=== PATIENT | female | born 1985 | race Two or more races ===

== ENCOUNTER 2024-09-29 10:22 | Emergency (ER) | payer MEDICAID, OTHER ==
[~2024-09-29] VITALS: Ht 157.5 cm; Wt 89.1 kg
[2024-09-29 11:36] LABS: Hematocrit 39.8 % (36.0-46.0); Hemoglobin 13.3 g/dL (12.2-16.2); Mean Corpuscular Hemoglobin 28.2 pg (28.0-32.0); Mean Corpuscular Volume 84.6 fL (80.0-100.0); Nucleated Red Blood Cells % 0.1 %
--- NOTE | 2024-09-29 11:39 | ED.PDOC ---
History of Present Illness HPI Comments Rosanne: HPI: Poor Historian. Patient felt hot HPI: 39y F who presents to the ED for chief complaint of fever - pt states she had L hand surgery at [facility] September 18, 2024 for trigger finger for al 5 fingers on L hand - pt states she was placed on Keflex and states she has been taking it as prescribed and states course of antibiotics ends tomorrow - pt states since yesterday, she has been having subjective fever, chills and states she "feels hot" - pt states she has been placing ice packs on and off but states it has not been helping - pt states her temp at home has been ranging around 102 F at home - pt states she has been taking Tylenol with last 2 doses at 1900 last night and 0900 this AM - pt now in the ED, with temp of 98.3 F, heart rate 100, BP 151/94 - pt otherwise denies any other symptoms at this time Past Medical History: DM Past Surgical History: L hand surgery, carpel tunnel surgery, 4x c-sections Social History: Denies ETOH, smoking, and drug use. Medications: metformin Allergies: NSAIDS REVIEW OF SYSTEMS: CONSTITUTIONAL: Denies acute: , diaphoresis, chills, generalized weakness. HEAD: Denies acute: , photophobia Eyes: Denies acute: Double vision, vision loss, eye pain, eye discharge. EARS: Denies acute: tinnitus, hearing loss, ear discharge, ear pain, THROAT: Denies acute: sore throat, swelling, difficulty swallowing , pain with swallowing, change in voice. NECK: Denies acute: neck pain, neck swelling, stiff neck. HEART: Denies acute : chest pain, palpitations, LUNGS: Denies acute: SOB, wheezing, cough, hemoptysis ABDOMEN: Denies acute: abdominal pain, Nausea, Vomiting, diarrhea, melena , hematemesis, hematochezia SKIN: Denies acute: rash, redness, lesions, itchiness. EXTREMITIES: Denies acute: calf pain, numbness, tingling, weakness, denies pain in extremity. Denies acute: Low back pain. Neuro: Denies acute: focal neurological deficit, motor or sensory focal neurological deficit, tremors, seizure like activity, confusion, dizziness, change in mental status, loss of bowel or bladder function, cauda equina like symptoms. : Denies acute: dysuria, hematuria, flank pain, increase in urinary frequency. PSYCH: Denies acute: hallucination, suicidal ideation, homicidal ideation. FEMALE: Denies acute: abnormal vaginal bleeding, foul odor, unusual discharge. PHYSICAL EXAM: General: ----no----acute distress, awake and alert. Head: normocephalic, atraumatic. Neck: supple, trachea is midline, no swelling. Throat: Normal phonation. Eyes:, no erythema, no purulent discharge, no proptosis, no icterus. Heart: regular rate, regular rhythm, no significant murmur appreciated. Lungs: no apparent respiratory distress, Able to speak in full sentences. No wheezing, no rhonchi, no crackles. No stridors Clear to auscultation bilaterally. Abdomen: non tender to palpation, non distended, soft, no guarding, no rebound, + bowel sounds. Neuro: Awake, Alert, oriented to name, self, situation, follows commands GCS=15. Speech is normal. Skin: no petechia, no purpura, no cyanosis, non-pale, not jaundice. Lower extremities: --no - Pitting edema no deformity, no focal swelling, no calf TTP. Makes eye contact. moves all four extremities. Face: no apparent facial droop. Evaluation of the left hand: Patient had surgery on September 18. Good capillary refill. No swelling, no erythema, no tenderness,. Patient is neurovascularly intact. Able to wiggle all her fingers without any pain. Denies any complaints in her left hand where she had her surgery. Ambulating in the ED independently. No nuchal rigidity, Kernig's sign, Brudzinski's sign, no meningeal signs. ED COURSE: DISCLAIMER: This medical document was created using an electronic medical record system with voice recognition software and computerized dictation system. Although this document has been carefully reviewed, there might still be some phonetic and typographical errors. Occasional wrong-word or "sound-alike" substitutions may have occurred due to the inherent limitations of voice recognition software. These areas are purely typographical due to imperfections of the software programs and do not reflect any compromise in the patient's medical care. Please read the chart carefully and recognize, using context, where these substitutions have occurred. Chief Complaint: Headache Time Seen by MD: 10:26 Reviewed Notes: Medications, Allergies Information Source: Patient Mode of Arrival: Ambulatory Was a procedure done? Was a procedure done?: No Fever Differential Dx Differential Diagnosis: Influenza, Meningitis, Pneumonia, Pneumonitis, Pulmonary Embolus, Pyelonephritis, Sepsis, UTI, Viral Syndrome, Pharyngitis X-Ray, Labs, Meds, VS Vital Signs Date Time Temp Pulse Resp B/P (MAP) Pulse Ox O2 Delivery O2 Flow Rate FiO2 09/29/24 17:48 99.4 98 18 135/86 (102) 100 99.4 09/29/24 15:46 97 20 98 Room Air* 0 21 09/29/24 15:10 99.4 97 20 150/90 (110) 98 99.4 09/29/24 15:10 97 20 98 Room Air 09/29/24 10:53 98.3 100 20 151/94 (113) 99 98.3 Lab Test 09/29/24 11:35 09/29/24 11:13 Range/Units Urine Color Light-yellow Yellow Urine Clarity Clear Clear Urine pH 6.0 5.0-9.0 Urine Specific [place] 1.004 1.001-1.035 Urine Protein Negative Negative Urine Ketones Negative Negative Urine Blood Negative Negative /uL Urine Nitrite Negative Negative Urine Bilirubin Negative Negative Urine Urobilinogen Normal Negative mg/dL Urine Leukocyte Esterase Negative Negative /uL Urine RBC 1 0 - 4 /hpf Urine Microscopic WBC 1 0-5 /HPF Urine Squamous Epithelial Cells Few <5 /hpf Urine Bacteria Few H None Seen /hpf Urine Hyaline Casts Few 0 - 2 /lpf Urine Glucose Normal Normal mg/dL Urine Test Negative Negative White Blood Count 2.7 L 4.4-10.8 10^3/uL Red Blood Count 4.70 4.0-5.20 10^6/uL Hemoglobin 13.3 12.2-16.2 g/dL Hematocrit 39.8 36.0-46.0 % Mean Corpuscular Volume 84.6 80.0-100.0 fL Mean Corpuscular Hemoglobin 28.2 28.0-32.0 pg Mean Corpuscular Hemoglobin Concent 33.4 32.0-36.0 g/dL Red Cell Distribution Width 14.5 H 11.8-14.3 % Platelet Count 210 140-450 10^3/uL Mean Platelet Volume 8.6 6.9-10.8 fL Neutrophils (%) (Auto) 67.4 37.0-80.0 % Lymphocytes (%) (Auto) 15.6 10.0-50.0 % Monocytes (%) (Auto) 15.1 H 0.0-12.0 % Eosinophils (%) (Auto) 0.9 0.0-7.0 % Basophils (%) (Auto) 1.0 0.0-2.0 % Neutrophils # (Auto) 1.9 1.6-8.6 10 ^3/uL Lymphocytes # (Auto) 0.4 0.4-5.4 10 ^3/uL Monocytes # (Auto) 0.4 0-1.3 10 ^3/uL Eosinophils # (Auto) 0 0-0.8 10 ^3/uL Basophils # (Auto) 0 0-0.2 10 ^3/uL Nucleated Red Blood Cells 0.1 % Erythrocyte Sedimentation Rate 36 H 0-20 mm/hr Sodium Level 139 136-145 mmol/L Potassium Level 3.6 3.5-5.1 mmol/L Chloride Level 105 98-107 mmol/L Carbon Dioxide Level 24 20-31 mmol/L Anion Gap 10 5-15 Blood Urea Nitrogen 13 9-23 mg/dL Creatinine 0.73 0.550-1.02 mg/dL Glomerular Filtration Rate Calc 107 >90 mL/min BUN/Creatinine Ratio 17.8 10.0-20.0 Serum Glucose 136 H 74-106 mg/dL Lactic Acid Level 1.3 0.4-2.0 mmol/L Calcium Level 10.2 8.7-10.4 mg/dL Total Bilirubin 0.3 0.2-1.0 mg/dL Aspartate Amino Transferase (AST) 34 13-40 U/L Alanine Aminotransferase (ALT) 39 7-40 U/L Alkaline Phosphatase 104 46-116 U/L C-Reactive Protein High Sensitivity 2.52 H <1.0 mg/dL Total Protein 7.4 5.7-8.2 g/dL Albumin 4.7 3.2-4.8 g/dL Microbiology Date/Time Source Procedure Growth Status 09/29/24 11:15 Blood Blood Culture - Final NO GROWTH AFTER 5 DAYS OF INCUBATION. Complete 09/29/24 10:55 Blood Blood Culture - Final NO GROWTH AFTER 5 DAYS OF INCUBATION. [facility] [id number] [facility] [address] Ph: [phone] DIAGNOSTIC IMAGING Diagnostic Imaging Report : [id number] Signed PATIENT: ANTHONY FREDERICK CACCT: [id number] UNIT: [id number] : 1985 LOC: ER ROOM / BED: / AGE / SEX: 39 / F ADM STATUS: REG ER SERVICE 1052 ORDERING PHYSICIAN: HEMANTH NORIEGA DO PROCEDURE(s): CXRP - CHEST PORTABLE REASON: fever post op ORDER NUMBER(s): [id number], ACCESSION NUMBER(s): [id number] CHEST RADIOGRAPH Indication: fever post op Technique: Single frontal view of the chest was obtained Comparison: None FINDINGS: Lines and Tubes: None Lungs: No focal consolidation. Pleura: No effusion. No pneumothorax. Cardiomediastinal contours: Unremarkable Bones: No acute osseous abnormality. IMPRESSION: No acute cardiopulmonary disease. ATED BY: APRIL MAYBERRY DO DICTATED DATE/TIME: 09/29/241402 SIGNED BY: APRIL MAYBERRY DO SIGNED DATE/TIME: 09/29/241402 CC: Time of 1ST Reevaluation: 00:00 Reevaluation 1ST: N/A Patient Education/Counseling: Diagnosis, Treatment Family Education/Counseling: No Family Present Comments MDM: patient presented with the above HPI.---subjective fever---workup was initiated. patient was found with the above mentioned diagnosis. the following medications were ordered: please refer to order lists of meds and tests obtained by myself Dr. Noriega. Patient ED course and VS have been stabilized. Patient has been reassessed in the ED and remained in a stable condition. Pertinent incidental findings were discussed with the patient and/or family. Patient/family voices understanding and is agreeable with plan. Patient has been observed in the ED adequate length of time to insure improvement/stability. Escalation of care considered: Consideration of escalation to observation or admission Patient was never given any antipyretics here in the ED. Patient was watched for a long time and she remained afebrile. Vital signs remained stable. No source of infection was identified. Patient is already on antibiotics. Patient was given empiric antibiotics as we are completing her fever workup. Patient was DISCHARGED home in a stable condition. All the reports of any imaging studies that were ordered by myself were reviewed by myself. SEPSIS Sepsis Screen Date sepsis recognized/suspect: Sep 29, 2024 Time Sepsis recognized/suspect: 1030 Recent Procedure: No On Antibiotic Therapy: No Respiratory Rate >20: No Heart Rate >90: Yes Temp<36 C (96.8 F) or >38.3 C: No SBP <90 or MAP <65 mmHG: No New Acute Mental Status Change: No Is the patient on CPAP, BIPAP,: No Physician Orders Credentialing Manager (09/29/24 ) Chest Portable (09/29/24 10:52) Electrocardigram (09/29/24 10:52) Vital Signs Date Time Temp Pulse Resp B/P (MAP) Pulse Ox O2 Delivery O2 Flow Rate FiO2 09/29/24 17:48 99.4 98 18 135/86 (102) 100 99.4 09/29/24 15:46 97 20 98 Room Air* 0 21 09/29/24 15:10 99.4 97 20 150/90 (110) 98 99.4 09/29/24 15:10 97 20 98 Room Air 09/29/24 10:53 98.3 100 20 151/94 (113) 99 98.3 Laboratory Tests Test 09/29/24 11:13 Lactic Acid Level 1.3 mmol/L (0.4-2.0) White Blood Count 2.7 10^3/uL (4.4-10.8) L Departure 1 Departure Time of Disposition: 18:50 Impression: Primary Impression: Fever in adult Disposition: 01 HOME / SELF CARE / HOMELESS Condition: Stable Additional Instructions: Additional instructions: You MUST follow-up with your primary care/family doctor in 1 to 2 days. If you are unable to see your primary care/family doctor, please return to our emergency room for re-assessment and re-evaluation in 1 to 2 days. Return to the emergency room here in our facility or to the nearest ER [facility] if your symptoms change or worsen. CONSULTATIONS: you MUST Follow-up for consultation as soon as possible with: Dr. neurology in 1-2 days. Please call for appointment. You MUST call the consultants office yourself to make an appointment. You may need to arrange that through your insurance and/or your primary/family doctor. If you are unable to see the furniture sales consultant in 1 to 2 days, you must return to our emergency room (or any other ER of your choice) for re-assessment and re- evaluation. Adequate fluid hydration. Discharged With: Self Critical Care Note Critical Care Time?: No I personally scribed for HEMANTH NORIEGA DO ([email or web address]) on 09/29/24 at 11:39. Electronically submitted by Anselmo Jackson ([employer]). I personally scribed for HEMANTH NORIEGA DO ([email or web address]) on 09/29/24 at 12:27. Electronically submitted by Anselmo Jackson ([employer]). I personally scribed for HEMANTH NORIEGA DO ([email or web address]) on 09/29/24 at 12:34. Electronically submitted by Anselmo Jackson ([employer]). I personally scribed for HEMANTH NORIEGA DO ([email or web address]) on 09/29/24 at 15:23. Electronically submitted by Anselmo Jackson ([email or web address]). I personally scribed for HEMANTH NORIEGA DO ([email or web address]) on 09/29/24 at 22:01. Electronically submitted by Anselmo Jackson ([employer]). HEMANTH NORIEGA DO Sep 29, 2024 11:39
[2024-09-29 11:52] LABS: Alanine Aminotransferase 39 U/L (7-40); Albumin 4.7 g/dL (3.2-4.8); Alkaline Phosphatase 104 U/L (46-116); Anion Gap 10 (5-15); BUN/Creatinine Ratio 17.8 (10.0-20.0); Blood Urea Nitrogen 13 mg/dL (9-23); Calcium 10.2 mg/dL (8.7-10.4); Carbon Dioxide 24 mmol/L (20-31); Chloride 105 mmol/L (98-107); Potassium 3.6 mmol/L (3.5-5.1); Sodium 139 mmol/L (136-145); Total Protein 7.4 g/dL (5.7-8.2)
[2024-09-29 11:53] LABS: Bilirubin, Total 0.3 mg/dL (0.2-1.0)
[2024-09-29 11:57] LABS: Glucose 136 mg/dL (74-106)
[2024-09-29 12:50] LABS: Urine Protein, UAD Negative (Negative)
--- NOTE | 2024-09-29 14:06 | DVH ---
CHEST RADIOGRAPH Indication: fever post op Technique: Single frontal view of the chest was obtained Comparison: None FINDINGS: Lines and Tubes: None Lungs: No focal consolidation. Pleura: No effusion. No pneumothorax. Cardiomediastinal contours: Unremarkable Bones: No acute osseous abnormality. IMPRESSION: No acute cardiopulmonary disease.
[2024-09-29] MEDS: cefTRIAXone 1GM/50ML D5W 50 ML IV ONE (15:37)
[2024-09-29 15:46] VITALS: PULSE 97; RESP 20; O2SAT 98
[2024-09-29] MEDS: SODIUM CHLORIDE 0.9% 1,000 ML IV ONE (16:23)
[2024-09-29 17:48] VITALS: BP 135/86; PULSE 98; RESP 18; TEMP 99.4; O2SAT 100
== END 2024-09-29 19:01 | disposition home or self-care (01) ==
LOC: ER 10:22
DX: R50.9 Fever, unspecified (principal); E11.9 Type 2 diabetes mellitus without complications; Z98.890 Other specified postprocedural states; Z79.84 Long term (current) use of oral hypoglycemic drugs; Z88.8 Allergy status to other drugs, medicaments and biological substances
CPT/HCPCS: 36415; 71045; 80053; 81001; 81025; 83605; 85025; 85652; 86141; 87040; 96361; 96365; 99284; J0696; J7030